=== PATIENT | male | born 1960 | race Caucasian/White ===

== ENCOUNTER 2016-12-12 21:13 | Emergency (ER) | payer OTHER ==
[2016-12-12 22:13] VITALS: BP 126/67
[2016-12-12] MEDS ORDERED: Diphtheria,Pertussis(Acell),Tetanus Vaccine 0.5 ML SDV IM ONE (22:27)
--- NOTE | 2016-12-12 22:32 | EDM.PDOC ---
ED HPI GENERAL MEDICAL PROBLEM - General Chief Complaint: Laceration Stated Complaint: FISH HOOK Time Seen by Provider: 12/12/16 22:28 Source of Information: Reports: Patient History Limitations: Reports: No Limitations - History of Present Illness INITIAL COMMENTS - FREE TEXT/NARRATIVE: pt has a fishook in the ball of his rt foot. Onset: Today Duration: Hour(s): Location: Reports: Lower Extremity, Right Associated Symptoms: Reports: No Other Symptoms Right Feet Pain Score (Numeric/FACES): 5 - Related Data Allergies Allergy/AdvReac Type Severity Reaction Status Date / Time sulfamethoxazole Allergy Hives Verified 12/12/16 22:13 [From ] trimethoprim [From ] Allergy Hives Verified 12/12/16 22:13 Home Meds: Home Meds Gabapentin [Neurontin] 200 mg PO BID 12/12/16 [History] Past Medical History - Past Health History Medical/Surgical History: Denies Medical/Surgical History Social & Family History - Family History Family Medical History: Noncontributory - Tobacco Use Smoking Status *Q: Never Smoker Second Hand Smoke Exposure: No - Caffeine Use Caffeine Use: Reports: None - Recreational Drug Use Recreational Drug Use: No ED ROS GENERAL - Review of Systems Review Of Systems: See Below Constitutional: Reports: No Symptoms HEENT: Reports: No Symptoms Respiratory: Reports: No Symptoms Cardiovascular: Reports: No Symptoms Endocrine: Reports: No Symptoms GI/Abdominal: Reports: No Symptoms : Reports: No Symptoms ED EXAM, SKIN/RASH Exam: See Below Text/Narrative:: pt has a fishook on the bottom of his rt foot. Exam Limited By: No Limitations General Appearance: Alert, Anxious Extremities: Other ( fishook on the bottom of his rt foot. ) Course - Vital Signs Last Recorded V/S: Last Vital Signs Temp 36.3 C 12/12/16 22:07 Pulse 62 12/12/16 22:07 Resp 18 12/12/16 22:07 BP 126/67 12/12/16 22:07 Pulse Ox 97 12/12/16 22:07 - Orders/Labs/Meds Orders: Active Orders 24 hr Category Date Time Status Vaccines to be Administered [RC] PER UNIT ROUTINE Care 12/12/16 22:27 Ordered Diphth,Pertuss(Acell),Tet Vac [Adacel] Med 12/12/16 22:27 Once 0.5 ml IM .ONCE ONE Meds: Medications Discontinued Medications Generic Name Dose Route Start Last Admin Trade Name Sharla PRN Reason Stop Dose Admin Lidocaine HCl 5 ml 12/12/16 21:42 12/12/16 22:06 Xylocaine-Mpf 1% INJECT 12/12/16 21:43 5 ml ONETIME ONE Administration - Re-Assessments/Exams Free Text/Narrative Re-Assessment/Exam: 12/12/16 22:30 area was cleansed and infiltrated with lidocaine. The hook was pushed through and removed without difficulty. Departure - Departure Time of Disposition: 22:30 Disposition: Home, Self-Care 01 Condition: Fair Clinical Impression: Foreign body (FB) in soft tissue - Discharge Information Forms: ED Department Discharge Care Plan Goals: soak foot if tender, tetanus was given - My Orders Last 24 Hours: My Active Orders 12/12/16 22:27 Vaccines to be Administered [RC] PER UNIT ROUTINE Diphth,Pertuss(Acell),Tet Vac [Adacel] 0.5 ml IM .ONCE ONE - Assessment/Plan Last 24 Hours: My Active Orders 12/12/16 22:27 Vaccines to be Administered [RC] PER UNIT ROUTINE Diphth,Pertuss(Acell),Tet Vac [Adacel] 0.5 ml IM .ONCE ONE
== END 2016-12-12 22:46 | disposition home or self-care (01) ==
LOC: JP.ED 21:13
DX: S90.851A Superficial foreign body, right foot, initial encounter (principal); Z23 Encounter for immunization; Z88.1 Allergy status to other antibiotic agents; W45.8XXA Other foreign body or object entering through skin, initial encounter
CPT/HCPCS: 90471; 90715; 99283-25